=== PATIENT | male | born 1940 | race Caucasian/White ===

== ENCOUNTER 2022-08-15 14:34 | Emergency (ER) | payer MEDICARE, OTHER, SELFPAY ==
[2022-08-15 15:00] VITALS: BP 189/84; PULSE 85; RESP 18; TEMP 38.1; O2SAT 97; BMI 27.3
[2022-08-15 15:46] VITALS: BP 140/75; PULSE 91; RESP 20; O2SAT 98
--- NOTE | 2022-08-15 15:47 | ED_ITS ---
HPI - URI/Sore Throat <EPI Chilel - Last Filed: 08/15/22 16:03> General Chief Complaint: Upper Respiratory Symptoms Stated Complaint: running nose 3days horrible Time Seen by Provider: 08/15/22 15:12 Source: patient Mode of arrival: Ambulatory History of Present Illness HPI Narrative: This is a 81-year-old gentleman who presents to the emergency department with his for concern about upper respiratory symptoms for the last 3-4 days, states he is had a runny nose, watery eyes, tested himself for COVID and ?who knows what else ?and it was positive. Came in off of the [place] [employer] ship today. Patient tested positive for COVID yesterday but does not know if any other things were on that test. States that he has not had a fever, no vomiting, no diarrhea, states that he is uncomfortable but does not have any significant fatigue or illness concerns. He would like to be treated for COVID as he is getting back on that cruise ship in 10 days. States that he has been taking Tylenol and ibuprofen for symptoms which has been mildly helpful. Related Data Previous Rx's Medication Instructions Recorded cetirizine 10 mg tablet (Zyrtec) 10 mg PO DAILY PRN congestion #30 08/15/22 tabs guaifenesin 600 mg tablet, 600 mg PO BID PRN productive cough 08/15/22 extended release 12 hr (Mucinex) #30 tabs nirmatrelvir 300 mg (150 mg See Rx Instructions PO .COMPLEX 08/15/22 x2)-ritonavir 100 mg tablet,dose #30 ea pack(EUA) (Paxlovid) Allergies Allergy/AdvReac Type Severity Reaction Status Date / Time No Known Drug Allergies Allergy Verified 08/15/22 15:00 Review of Systems <EPI Chilel - Last Filed: 08/15/22 16:03> Review of Systems ROS Unobtainable: All systems reviewed & are unremarkable except as noted in HPI and below Patient History <EPI [place]l - Last Filed: 08/15/22 16:03> Social History Smoking Status: Never smoker Smoking Status: Never smoker alcohol intake frequency: holidays/special occasions only Substance Use Type: does not use Exam <EPI [place]l - Last Filed: 08/15/22 16:03> Narrative Exam Narrative: Reviewed vitals signs and nursing notes. General: Pleasant, sitting upright, in no acute distress, well groomed, afebrile HEENT: symmetrical facial expressions, moist mucous membranes, neck is supple, congestion present CV: regular rate and rhythm, warm extremities Respiratory: normal work of breathing, without tachypnea or hypoxia. Breath sounds are clear throughout all velarde GI: abdomen soft, nondistended, without CVA tenderness bilaterally. MSK: moves all extremities, no weakness, normal tone, ambulatory without deficit Skin: brisk capillary refill, without rash or wound Neuro: clear speech and normal cognition, A&O x3, GCS 15, no focal motor or sensation deficits Initial Vital Signs Initial Vital Signs: Vital Signs Temperature 100.6 F H 08/15/22 15:00 Pulse Rate 85 08/15/22 15:00 Respiratory Rate 18 08/15/22 15:00 Blood Pressure 189/84 H 08/15/22 15:00 Pulse Oximetry 97 08/15/22 15:00 Oxygen Delivery Method Room Air 08/15/22 15:00 <Samina Herrera DO - Last Filed: 08/15/22 19:36> Initial Vital Signs Initial Vital Signs: Vital Signs Temperature 100.6 F H 08/15/22 15:00 Pulse Rate 85 08/15/22 15:00 Respiratory Rate 18 08/15/22 15:00 Blood Pressure 189/84 H 08/15/22 15:00 Pulse Oximetry 97 08/15/22 15:00 Oxygen Delivery Method Room Air 08/15/22 15:00 Course <EPI [place]l - Last Filed: 08/15/22 16:03> Orders Ordered: ED Orders 08/15/22 15:08 Covid-19 + FLU A/B + RSV - PCR Stat Vital Signs Vital signs: Vital Signs - 8 hr 08/15/22 15:00 08/15/22 15:46 Temperature 100.6 F H Pulse Rate 85 91 H Respiratory Rate 18 20 Blood Pressure 189/84 H 140/75 Pulse Oximetry 97 98 Oxygen Delivery Method Room Air Room Air <Samina Herrera DO - Last Filed: 08/15/22 19:36> Orders Ordered: ED Orders 08/15/22 15:08 Covid-19 + FLU A/B + RSV - PCR Stat Vital Signs Vital signs: Vital Signs - 8 hr 08/15/22 15:00 08/15/22 15:46 Temperature 100.6 F H Pulse Rate 85 91 H Respiratory Rate 18 20 Blood Pressure 189/84 H 140/75 Pulse Oximetry 97 98 Oxygen Delivery Method Room Air Room Air MDM - URI/Sore Throat <Trini Kim, [facility] - Last Filed: 08/15/22 16:03> Lab Data Labs: Lab Results 08/15/22 Range/Units 15:08 SARS-CoV-2 (PCR) Positive H (Negative) Influenza A (RT-PCR) Flu a positive H (NEGATIVE) Influenza B (RT-PCR) Flu b negative (NEGATIVE) RSV (PCR) Negative (Negative) MDM Narrative Medical decision making narrative: Chief Complaint: Upper respiratory infection Primary historian: Patient Multiple etiologies for patient's complaint considered including, but not limited to: Acute viral illness, pneumonia, croup, asthma/reactive airway exacerbation, allergic reaction, acute otitis media, tonsillitis/pharyngitis, bronchitis, sinusitis, postnasal drip, pertussis, pneumothorax, pneumonitis Respiratory PCR: Positive for influenza a, COVID-19 Patient denies history of COPD, smoking, heart or lung disease, immunosuppression, kidney disease. States that his last checkup he had normal lab work. I will prescribe Paxlovid for his COVID illness, discuss treating influenza a with symptom management medications like Zyrtec and Mucinex. He was given prescriptions of these as well. Do not suspect underlying cardiopulmonary process. They are nontoxic appearing and not in need of emergent medical intervention. Patient is tolerating p.o. Recommended rest, hydration, tylenol and NSAIDS for fever and/or pain. Return to ED for worsening symptoms such as SOB, chest pain, inability to take adequate oral fluids, fever, or productive cough. #65: Appropriate Treatment for Patients with URI [x] The patient was diagnosed with upper respiratory infection and was not prescribed or dispensed an antibiotic. [SATISFIES MIPS PERFORMANCE] [] The patient has competing comorbid condition within the last 12 months. The comorbid condition was [] (e.g., neutropenia, cystic fibrosis, chronic bronchitis, pulmonary edema, respiratory failure, rheumatoid lung disease). [MIPS PERFORMANCE EXCEPTION/EXCLUSION] [] The patient is already on antibiotics, or has taken them within the last 30 days. [MIPS PERFORMANCE EXCEPTION/EXCLUSION] [] The patient had a competing diagnosis of [] (e.g. acute otitis media, chronic sinusitis, cellulitis, UTI, etc.). [MIPS PERFORMANCE EXCEPTION/EXCLUSION] [] The patient was diagnosed with upper respiratory infection and was prescribed or dispensed an antibiotic. [DOES NOT SATISFY MIPS PERFORMANCE] I have independently reviewed the patient's vital signs and nursing notes as well as prior records if available. Social considerations that may affect disposition: none Questions are addressed and there is agreement with the plan and for follow-up. I consulted with the ED attending physician Dr. Herrera as needed for higher level of care considerations and they were available for discussion and recommendations regarding plan of care and diagnostic testing. Patient is appropriate for outpatient management. <Samina Herrera, DO - Last Filed: 08/15/22 19:36> Lab Data Labs: Lab Results 08/15/22 Range/Units 15:08 SARS-CoV-2 (PCR) Positive H (Negative) Influenza A (RT-PCR) Flu a positive H (NEGATIVE) Influenza B (RT-PCR) Flu b negative (NEGATIVE) RSV (PCR) Negative (Negative) Discharge Plan Departure Patient Disposition: Home Clinical Impression: COVID-19, Influenza A Instructions: COVID-19 Activity Restrictions/Additional Instructions: *You have been diagnosed with COVID illness. I am sorry for your symptoms, please use Zyrtec nightly and Mucinex as needed for productive cough. Please take Paxil COVID until it is gone, hold your atorvastatin and do not take any of this while you are taking this medication. Stay hydrated, follow up with your primary care provider as needed, return to the emergency department for shortness of breath, severe symptoms, chest pain or worsening. *What to do: *Please continue to take your regular medications as directed. [ x] New medication prescriptions sent to your pharmacy: [ [facility]] [ ] New medication written as a paper prescription [ ] No new medications given *Please call and schedule follow up with your primary care provider in 2-3 days, at least for an update. Let them know you were seen in the Emergency Department for the above problem. We will electronically transmit a record of today's note if your PCP or specialist is in our system. *If you do not have a primary care provider please contact [phone] to establish care with one of the [facility] primary care providers. *Return to the Emergency Department for worsening symptoms, inability to keep liquids down, fever greater than 101F, chills, or other concerning symptom. Prescriptions: New Paxlovid (EUA) 300 mg (150 mg x 2)-100 mg tablets,dose pack See Rx Instructions .ROUTE .COMPLEX Qty: 30 0RF Rx Instructions: take TWO 150 mg tablets of nirmatrelvir with ONE 100 mg tablet of ritonavir twice daily for 5 days cetirizine [Zyrtec] 10 mg tablet 10 mg PO DAILY PRN (Reason: congestion) Qty: 30 0RF guaifenesin [Mucinex] 600 mg tablet extended release 12hr 600 mg PO BID PRN (Reason: productive cough) Qty: 30 0RF Stand Alone Forms: Patient Portal/API <Samina Herrera DO - Last Filed: 08/15/22 19:36> Cosign ED Attending Coshersonature Attestation: I was immediately available in the department for consultation. Documentation has been reviewed.
[2022-08-15 15:53] LABS: Influenza A - CEPHEID Flu A POSITIVE (NEGATIVE); Influenza B - CEPHEID Flu B NEGATIVE (NEGATIVE); Respiratory Syncytial Virus Negative (Negative)
[2022-08-15 15:58] LABS: COVID-19 CEPHEID 4-PLEX PCR POSITIVE (Negative)
== END 2022-08-15 16:02 | disposition home or self-care (01) ==
LOC: ED 16:02
PROVIDERS: Emergency Medicine; Emergency Provider Nurse Practitioner Critical Care Medicine
DX: U07.1 COVID-19 (principal); J10.1 Influenza due to other identified influenza virus with other respiratory manifestations
CPT/HCPCS: 0241U; 99281; 99282